=== PATIENT | female | born 1990 | race Caucasian/White ===

== ENCOUNTER 2021-08-14 01:03 | Emergency (ER) | payer SELFPAY ==
[~2021-08-14 01:03] MED LIST: IMODIUM2 MG PO; MACROBID100 MG PO
[2021-08-14 01:55] LABS: BASOPHIL 0.5 % (0-2); EOSINOPHIL 0.1 % (0-5); HCT 43.6 % (37.0-47.0); HGB 14.4 g/dl (12.5-16.0); LYMPHOCYTE 6.9 % (15-48); MCH 29.1 pg (25.0-31.0); MCV 88.3 fL (78.0-100.0); MONOCYTE 9.1 % (0-12); MPV 9.9 fL (6.0-9.5); NRBC 0; PLT 237 K/uL (150-400); RBC 4.94 M/uL (4.20-5.40); RDW 13.3 % (11.5-14.0); WBC 7.8 K/uL (4.0-10.5)
[2021-08-14 02:04] LABS: MONOSPOT (MONONUCLEOSIS) NEGATIVE (NEGATIVE)
[2021-08-14 02:14] LABS: ALBUMIN 3.8 g/dL (3.4-5.0); BILIRUBIN - TOTAL 0.3 mg/dL (0.2-1.0); BUN/CREAT RATIO (CALC) 20.3 RATIO; C-REACTIVE PROTEIN 2.5 mg/dL (<=0.90); CREATININE 0.64 mg/dL (0.51-0.95); POTASSIUM 3.3 mmol/L (3.5-5.1); TOTAL PROTEIN 7.8 g/dL (6.4-8.2)
[2021-08-14 02:16] LABS: INFLUENZA A NAA NEGATIVE (NEGATIVE)
[2021-08-14 02:17] LABS: CORONAVIRUS 2019 SARS-COV-2 POSITIVE (NEGATIVE)
[2021-08-14] MEDS ORDERED: ONDANSETRON ODT4 MG PO (02:29)
[2021-08-14] MEDS ORDERED: NAPROXEN500 MG PO (02:29)
== END 2021-08-14 02:45 | disposition home or self-care (01) ==
LOC: FER 01:03
PROVIDERS: Emergency Medicine
DX: U07.1 COVID-19 (principal)
CPT/HCPCS: 36415; 80053; 83690; 84145; 84703; 85025; 86140; 86308; J1885; J2405; J7030; U0002

== ENCOUNTER 2021-12-13 13:29 | Emergency (ER) | payer OTHER ==
[~2021-12-13 13:29] MED LIST changes: +NAPROXEN500 MG PO; +ONDANSETRON ODT4 MG PO
[2021-12-13 14:57] LABS: EOSINOPHIL 2.3 % (0-5); HCT 40.5 % (37.0-47.0); HGB 13.8 g/dl (12.5-16.0); LYMPHOCYTE 32.2 % (15-48); MCH 29.8 pg (25.0-31.0); MCHC 34.1 g/dL (32.0-36.0); MCV 87.5 fL (78.0-100.0); MONOCYTE 8.2 % (0-12); MPV 10.2 fL (6.0-9.5); NEUTROPHIL 56.2 % (41-80); NRBC 0; PLT 221 K/uL (150-400); RBC 4.63 M/uL (4.20-5.40); RDW 13.2 % (11.5-14.0)
[2021-12-13 15:07] LABS: ALBUMIN 3.9 g/dL (3.4-5.0); BILIRUBIN - TOTAL 0.5 mg/dL (0.2-1.0); CREATININE 0.75 mg/dL (0.51-0.95); GLOBULIN (CALCULATION) 3.7 g/dL; POTASSIUM 3.5 mmol/L (3.5-5.1); TOTAL PROTEIN 7.6 g/dL (6.4-8.2)
[2021-12-13 16:15] LABS: BILIRUBIN NEGATIVE (NEGATIVE); BLOOD NEGATIVE Ery/uL (NEGATIVE); CLARITY CLEAR (CLEAR); COLOR YELLOW (YELLOW); GLUCOSE (U) NORMAL (NORMAL); LEUKOCYTES NEGATIVE Leu/uL (NEGATIVE); NITRITE NEGATIVE (NEGATIVE); PROTEIN NEGATIVE (NEGATIVE); UROBILINOGEN 0.2 mg/dL (0.2-1.0)
== END 2021-12-13 17:33 | disposition home or self-care (01) ==
LOC: FER 13:29
PROVIDERS: Emergency Medicine
DX: N85.8 Other specified noninflammatory disorders of uterus (principal)
CPT/HCPCS: 36415; 80053; 81003; 85025

== ENCOUNTER 2022-02-07 11:13 | Emergency (ER) | payer OTHER ==
[2022-02-07 12:25] LABS: CORONAVIRUS 2019 SARS-COV-2 NEGATIVE (NEGATIVE); INFLUENZA A NAA NEGATIVE (NEGATIVE)
[2022-02-07 12:31] LABS: BILIRUBIN NEGATIVE (NEGATIVE); BLOOD TRACE-INTACT Ery/uL (NEGATIVE); CLARITY CLEAR (CLEAR); COLOR YELLOW (YELLOW); GLUCOSE (U) NORMAL (NORMAL); LEUKOCYTES NEGATIVE Leu/uL (NEGATIVE); NITRITE NEGATIVE (NEGATIVE); PROTEIN NEGATIVE (NEGATIVE); SPECIFIC GRAVITY <=1.005 (1.001-1.030); UROBILINOGEN 0.2 mg/dL (0.2-1.0); pH 6.5 (5.0-9.0)
[2022-02-07 12:41] LABS: YEAST PRESENT
[2022-02-07] MEDS ORDERED: DIFLUCAN150 MG PO (12:48)
[2022-02-07] MEDS ORDERED: AMOXICILLIN500 MG PO (12:48)
== END 2022-02-07 13:16 | disposition home or self-care (01) ==
LOC: FER 11:13
PROVIDERS: Emergency Medicine
DX: J02.0 Streptococcal pharyngitis (principal); B95.5 Unspecified streptococcus as the cause of diseases classified elsewhere; N39.0 Urinary tract infection, site not specified; Z20.822 Contact with and (suspected) exposure to COVID-19
CPT/HCPCS: 81001; 87880; 99283; Q0162; U0002